=== PATIENT | female | born 1965 | race Caucasian/White ===

== ENCOUNTER 2024-10-09 05:25 | Day surgery (SDC) | payer OTHER ==
[2024-10-06 08:48] VITALS: BMI 19.5
[2024-10-09] MEDS ORDERED: ACETAMINOPHEN 500 MG TABLET (FP) PO SCH (10:30)
[2024-10-09] MEDS ORDERED: PROPOFOL 20 ML ONE (11:03)
[2024-10-09] MEDS ORDERED: LIDOCAINE HCL/PF 2% SDV 5ML VIAL ONE (11:04)
[2024-10-09] MEDS ORDERED: ONDANSETRON 4 MG/2 ML VIAL ONE (11:05)
[2024-10-09] MEDS ORDERED: DEXAMETHASONE SOD PHOSPHATE 4 MG/1 ML VIAL ONE (11:05)
[2024-10-09] MEDS ORDERED: ceFAZolin SODIUM 1 GM VIAL ONE (11:06)
[2024-10-09] MEDS ORDERED: MIDAZOLAM HCL 2 MG/2 ML SINGLE DOSE VIAL ONE (12:39)
[2024-10-09] MEDS ORDERED: KETOROLAC TROMETHAMINE 30 MG/1 ML VIAL ONE (12:39)
[2024-10-09] MEDS ORDERED: ACETAMINOPHEN INJECTION 100 ML ONE (12:39)
[2024-10-09] MEDS ORDERED: LIDOCAINE HCL 1%, 10 MG/ML (20ML VIAL) ONE (12:40)
[2024-10-09] MEDS ORDERED: BUPIVACAINE HCL/PF 0.5% (5MG/ML) 10 ML VIAL ONE (12:40)
[2024-10-09] MEDS: ceFAZolin SODIUM 1 GM VIAL IVPB ONE (13:00)
[2024-10-09] MEDS ORDERED: oxyCODONE HCL 5 MG TABLET PO PRN (14:27)
[2024-10-09 16:30] VITALS: RESP 20; TEMP 97.7
[2024-10-09 16:33] VITALS: BP 106/64; PULSE 67
[2024-10-09] MEDS ORDERED: AMITRIPTYLINE HCL 10 MG TABLET PO SCH (22:00)
== END 2024-10-09 16:05 | disposition home or self-care (01) ==
LOC: JASU-SURG 05:25
PROVIDERS: ATTEND Orthopaedic Surgery
PROC: 0MQ80ZZ Repair Left Hand Bursa and Ligament, Open Approach (ICD-10-PCS; principal; 2024-10-09 13:00)
DX: S63.682A Other sprain of left thumb, initial encounter (principal); X58.XXXA Exposure to other specified factors, initial encounter; Y93.9 Activity, unspecified; Y92.9 Unspecified place or not applicable; Y99.9 Unspecified external cause status
CPT/HCPCS: 76000-TC-FY; 94760; C1713; J0131